=== PATIENT | male | born 1960 | race Caucasian/White ===

== ENCOUNTER 2018-03-19 12:33 | Emergency (ER) | payer OTHER ==
[2018-03-19 12:46] VITALS: BP 182/105
--- NOTE | 2018-03-19 14:27 | UC ---
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 WAS UNABLE TO GET INTO HIS PCP TODAY SO HE CAME HERE. HE DENIES CHEST PAIN, SHORTNESS OF BREATH, NAUSEA, VISUAL DISTURBANCE, HEADACHE, SWEATS. FEELS WELL OVERALL. DENIES ANY PREVIOUS HISTORY OF HYPERTENSION AND IS NOT ON ANY MEDICATION. LAST PHYSICAL WITH HIS PCP DR. WARNER WAS 2 YEARS AGO. - History of Current Complaint Chief Complaint: UCGeneralIllness Stated Complaint: HIGH BLOOD PRESSURE Time Seen by Provider: 03/19/18 13:50 Hx Obtained From: Patient Aggravating Factor(s): Nothing Alleviating Factor(s): Nothing Associated Signs And Symptoms: Negative: Chest Pain, Vision Changes, Headaches, Numbness, Weakness, Dizziness, SOB, Swelling - Allergies/Home Medications Allergies/Adverse Reactions: Allergies Allergy/AdvReac Type Severity Reaction Status Date / Time No Known Allergies Allergy Verified 03/19/18 12:39 PMH/Surg Hx/FS Hx/Imm Hx Previously Healthy: Yes - Surgical History Surgery Procedure, Year, and Place: Rt knee arthroscopy - Family History Known Family History: Positive: Hypertension - Social History Alcohol Use: Daily Alcohol Amount: few beers/ night Substance Use Type: None Smoking Status (MU): Never Smoked Tobacco Review of Systems Constitutional: Negative Skin: Negative Respiratory: Negative Cardiovascular: Negative Gastrointestinal: Negative Musculoskeletal: Negative Neurological: Negative All Other Systems Reviewed And Are Negative: Yes Physical Exam Triage Information Reviewed: Yes Appearance: Well-Appearing, No Pain Distress, Well-Nourished Vital Signs: Initial Vital Signs Temp 99.4 F 03/19/18 12:39 Pulse 120 03/19/18 12:39 Resp 18 03/19/18 12:39 BP 182/105 03/19/18 12:39 Pulse Ox 97 03/19/18 12:39 Vital Signs Reviewed: Yes Eyes: Positive: Conjunctiva Clear ENT: Positive: Hearing grossly normal Neck: Positive: Supple, Nontender, No Lymphadenopathy Respiratory Exam: Normal Cardiovascular: Positive: Tachycardia Abdomen Description: Positive: Soft Musculoskeletal: Positive: ROM Intact, No Edema Neurological: Positive: Alert Psychological: Positive: Age Appropriate Behavior Skin: Negative: rashes Hypertension Course/Dx - Course Course Of Treatment: PATIENT DECLINED EKG STATING HE PREFERRED TO SEE DR. BREIMAN FIRST. PATIENT ALSO DECLINED TRANSFER TO THE ED TODAY. ADVISED THAT HE COULD BE RISKING WORSENING OF HIS CONDITION THAT COULD POSE A THREAT TO HIS LIFE , HEALTH AND MEDICAL SAFETY. HE VERBALIZES UNDERSTANDING AND CONTINUES TO DECLINE TRANSFER. STATES HE WILL GO TO ED IF HIS SX CHANGE OR WORSEN. WILL START ON LISINOPRIL AND HAVE ADVISED PT TO GET A BP METER AND CHECK BP DAILY. F/ U PCP THIS WEEK. - Differential Dx/Diagnosis Provider Diagnoses: HYPERTENSIVE CRISIS Discharge - Sign-Out/Discharge Documenting (check all that apply): Patient Departure All imaging exams completed and their final reports reviewed: No Studies - Discharge Plan Condition: Stable Disposition: HOME Prescriptions: Lisinopril 20 mg PO DAILY #30 tablet Patient Education Materials: Hypertensive Crisis (ED) Referrals: Harley Warner MD [Primary Care Provider] - 3 Days Additional Instructions: YOUR BLOOD PRESSURE TODAY WAS ELEVATED TO 182/105. THIS IS DANGEROUSLY HIGH AND IS CONCERNING FOR STROKE, HEART DISEASE OR END ORGAN DAMAGE. YOU HAVE DECLINED TRANSFER TO THE ED TODAY WITH THE UNDERSTANDING THAT YOUR CONDITION MAY WORSEN LEADING TO A POOR OUTCOME INCLUDING STROKE, CARDIAC ARREST, /DISABILITY. START THE BLOOD PRESSURE MEDICATION AND GET A BLOOD PRESSURE METER. CHECK YOUR PRESSURE DAILY AND KEEP A RECORD. FOLLOW-UP WITH YOUR PCP THIS WEEK. GO TO ED WITHOUT FAIL IF YOU DEVELOP SHORTNESS OF BREATH, CHEST PAIN, NAUSEA, SWEATS, DIZZINESS, VISUAL DISTURBANCES OR ANY OTHER CONCERNING SYMPTOMS. - Billing Disposition and Condition Condition: STABLE Disposition: Home
== END 2018-03-19 14:25 | disposition home or self-care (01) ==
LOC: UCEAST 12:33
DX: I16.9 Hypertensive crisis, unspecified (principal); Z82.49 Family history of ischemic heart disease and other diseases of the circulatory system
CPT/HCPCS: 99212; G0463

== ENCOUNTER 2018-05-17 09:27 | Emergency (ER) | payer OTHER ==
[2018-05-17] MEDS ORDERED: NS 0.9% 1000 ML* 1,000 ML IV ONE (09:59)
--- NOTE | 2018-05-17 10:20 | ED ---
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 Patient was then sent to ED. Patient denies chest pain, SOB, palpitations, and cardiac history, noting he has never received an EKG prior to this date and states that one was not done upstairs. 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 On triage, pain is denied, nothing is noted to aggravate/alleviate Sx. Home medications and allergies are reviewed. - History of Current Complaint Chief Complaint: EDDysrhythmPalp Stated Complaint: CHEST DISCOMFORT Time Seen by Provider: 05/17/18 09:53 Hx Obtained From: Patient Onset/Duration: Started Minutes Ago, Resolved - patient reports no palpitations , pulse is 98 Timing: Constant Current Severity: None Pain Intensity: 0 Pain Scale Used: 0-10 Numeric - 0/10 Aggravating Factor(s): Nothing Alleviating Factor(s): Nothing Associated Signs and Symptoms: Negative: Chest Pain, Shortness of Breath, Palpitations - Allergy/Home Medications Allergies/Adverse Reactions: Allergies Allergy/AdvReac Type Severity Reaction Status Date / Time No Known Allergies Allergy Verified 05/17/18 09:37 PMH/Surg Hx/FS Hx/Imm Hx Sensory History: Denies: Hx Legally Blind, Hx Deafness Opthamlomology History: Denies: Hx Legally Blind EENT History: Denies: Hx Deafness - Surgical History Surgery Procedure, Year, and Place: Rt knee arthroscopy Infectious Disease History: No Infectious Disease History: Denies: Traveled Outside the [place] in Last 30 Days - Family History Known Family History: Positive: Hypertension - Social History Alcohol Use: Daily Alcohol Amount: few beers/ night Substance Use Type: Reports: None Smoking Status (MU): Never Smoked Tobacco Review of Systems Negative: Palpitations, Chest Pain Negative: Shortness Of Breath All Other Systems Reviewed And Are Negative: Yes Physical Exam - Summary Physical Exam Summary: GENERAL: Patient is a well-developed and nourished male who is lying comfortable in the stretcher. Patient is not in any acute respiratory distress. HEAD AND FACE: Normocephalic EYES: PERRLA, EOMI x 2. EARS: Hearing grossly intact. MOUTH: Oropharynx within normal limits. NECK: Supple, trachea is midline, no adenopathy, no JVD, no carotid bruit. CHEST: Symmetric, no tenderness at palpation LUNGS: Clear to auscultation bilaterally. No wheezing or crackles. CVS: regular rate and rhythm, S1 and S2 present, no murmurs or gallops appreciated. ABDOMEN: Soft, non-tender. Bowel sounds are normal. No abdominal abnormal pulsations. EXTREMITIES: Full ROM in all major joints, no edema, no cyanosis or clubbing. NEURO: Alert and oriented x 3. No acute neurological deficits. Speech is normal and follows commands. SKIN: Dry and warm Triage Information Reviewed: Yes Vital Signs On Initial Exam: Initial Vitals Temp Pulse Resp BP Pulse Ox 98.4 F 98 18 135/78 98 05/17/18 09:33 05/17/18 09:33 05/17/18 09:33 05/17/18 09:33 05/17/18 09:33 Vital Signs Reviewed: Yes Diagnostics - Vital Signs Vital Signs Temp Pulse Resp BP Pulse Ox 05/17/18 09:33 98.4 F 98 18 135/78 98 - Laboratory Result Diagrams: 05/17/18 10:18 05/17/18 10:18 Lab Statement: Any lab studies that have been ordered have been reviewed, and results considered in the medical decision making process. - Radiology CXR Radiology Interpretation Completed By: Radiologist Summary of Radiographic Findings: IMPRESSION: NO ACTIVE CARDIOPULMONARY DISEASE. THIS REPORT WAS REVIEWED BY ED PHYSICIAN. - CT CTA Chest/Thorax CT Interpretation Completed By: Radiologist Summary of CT Findings: IMPRESSION: 1. NO PULMONARY ARTERIAL FILLING DEFECT TO SUGGEST PULMONARY EMBOLISM. 2. 0.4 CM NODULE OF THE LEFT LOWER LOBE. THE RECOMMENDATIONS FOR FOLLOWUP AND MANAGEMENT. OF AN INCIDENTALLY DETECTED PULMONARY NODULE LESS THAN 6 MM IN SIZE, IN A PATIENT WITHOUT. A HISTORY OF MALIGNANCY, INCLUDE NO FOLLOWUP FOR A LOW-RISK PATIENT OR OPTIONAL FOLLOWUP. CT IN 12 MONTHS FOR A HIGH RISK PATIENT. NOTES: SIZE = AVERAGE LENGTH AND WIDTH ; HIGH RISK IS DEFINED A HISTORY OF SMOKING OR. OTHER KNOW RISK FACTORS FOR LUNG CANCER; LOW RISK IS DEFINED MINIMAL OR ABSENT HISTORY. OF SMOKING OR OTHER KNOWN RISK FACTORS. THIS REPORT WAS REVIEWED BY ED PHYSICIAN. - Ultrasound No standard instances Ultrasound Interpretation Completed By: Radiologist Summary of Ultrasound Findings: DOPPLER VENOUS STUDY IMPRESSION: #. Negative for RIGHT or LEFT lower extremity DVT. THIS REPORT WAS REVIEWED BY ED PHYSICIAN. - EKG 0945 Cardiac Rate: NL - rate of 87 BPM EKG Rhythm: Sinus Rhythm Summary of EKG Findings: normal axis Re-Evaluation - Re-Evaluation First Eval Re-Evaluation Time: 11:00 Comment: As d-dimer was 789, discussed CTA chest and Venous Doppler Study with patient, who is agreeable. Second Eval Re-Evaluation Time: 13:25 Change: Improved Comment: Results of further imaging was discussed, patient reports feeling better. Patient will be discharged to home and follow up with PCP and chrome tanning drum operator. 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 Patient was then sent to ED. Patient denies chest pain, SOB, palpitations, and cardiac history, noting he has never received an EKG prior to this date and states that one was not done upstairs. 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 Physical exam was unremarkable. EKG showed normal sinus rhythm, 87 BPM, normal axis. CXR IMPRESSION: NO ACTIVE CARDIOPULMONARY DISEASE. During ED course, patient received fluids. Labs showed RBC 3.52, Hgb 12.4, Hct 35, glucose 95, lactic acid 1.2, magnesium 1.9, AST 42, BUN 29. BNP was 12, TSH 1.76, T4 6.7. Both trops were negative. D-dimer was 789, CTA chest and Venous Doppler study of both legs were ordered. DOPPLER VENOUS STUDY IMPRESSION: #. Negative for RIGHT or LEFT lower extremity DVT. THIS REPORT WAS REVIEWED BY ED PHYSICIAN. CTA CHEST/THORAX IMPRESSION: 1. NO PULMONARY ARTERIAL FILLING DEFECT TO SUGGEST PULMONARY EMBOLISM. 2. 0.4 CM NODULE OF THE LEFT LOWER LOBE. THE RECOMMENDATIONS FOR FOLLOWUP AND MANAGEMENT. OF AN INCIDENTALLY DETECTED PULMONARY NODULE LESS THAN 6 MM IN SIZE, IN A PATIENT WITHOUT. A HISTORY OF MALIGNANCY, INCLUDE NO FOLLOWUP FOR A LOW-RISK PATIENT OR OPTIONAL FOLLOWUP. CT IN 12 MONTHS FOR A HIGH RISK PATIENT. NOTES: SIZE = AVERAGE LENGTH AND WIDTH ; HIGH RISK IS DEFINED A HISTORY OF SMOKING OR. OTHER KNOW RISK FACTORS FOR LUNG CANCER; LOW RISK IS DEFINED MINIMAL OR ABSENT HISTORY. OF SMOKING OR OTHER KNOWN RISK FACTORS. Results were discussed with patient, who reports feeling better. Patient is hemodynamically stable and safe for discharge. Strict return precautions given and patient will otherwise follow up with PCP and chrome tanning drum operator. Patient is agreeable with this plan. Dx of palpitations. No evidence of tachycardia observed here in the ED. - Diagnoses Provider Diagnoses: Heart palpitations Discharge - Sign-Out/Discharge Documenting (check all that apply): Patient Departure - discharge - Discharge Plan Condition: Stable Disposition: HOME Patient Education Materials: Heart Palpitations (ED), Pulmonary Nodules (ED) Referrals: Harley Warner MD [Primary Care Provider] - 3 Days [facility] [Provider Group] - 3 Days Additional Instructions: Follow up with your primary care physician and chrome tanning drum operator in 1-3 days. It is noted on your CTA that you have pulmonary nodules, be sure to follow up with regards to this in six months. RETURN TO THE EMERGENCY DEPARTMENT FOR CHANGING OR WORSENING SYMPTOMS. - Billing Disposition and Condition Condition: STABLE Disposition: Home - Attestation Statements Document Initiated by Lisaibe: Yes Documenting Scribe: Carrington Hightower Provider For Whom Jeannette is Documenting (Include Credential): Carlos Ambrose MD Scribe Attestation: Carrington Shell scribed for Carlos Ambrose MD on 05/17/18 at 1414. Scribe Documentation Reviewed: Yes Provider Attestation: The documentation as recorded by the Carrington prince accurately reflects the service I personally performed and the decisions made by me, Carlos Ambrose MD
[2018-05-17 10:28] LABS: ABS Basophils 0 10^3/ul (0-0.2); ABS Eosinophils 0.1 10^3/ul (0-0.6); ABS Lymphocytes 0.7 10^3/ul (1.0-4.8); ABS Monocytes 0.7 10^3/ul (0-0.8); ABS Nucleated RBC 0 10^3/ul; Eosinophil % 1.4 % (0-6); Hematocrit 35 % (42-52); Hemoglobin 12.4 g/dl (14.0-18.0); Mean Corpuscular HGB Conc 35 g/dl (31-36); Mean Corpuscular Hemoglobin 35 pg (27-31); Mean Corpuscular Volume 99 fL (80-94); Mean Platelet Volume 7.2 fL (7.4-10.4); Nucleated Red Blood Cells % 0; Platelet Count 178 10^3/ul (150-450); Red Blood Count 3.52 10^6/ul (4.00-5.40); Red Cell Distribution Width 11 % (10.5-15); White Blood Count 6.5 10^3/ul (3.5-10.8)
[2018-05-17 10:42] LABS: EGFR Non-African American 69.2 (>60)
[2018-05-17 10:43] LABS: INR 0.94 (0.77-1.02)
[2018-05-17] MEDS ORDERED: Iohexol 350* (CONTRAST) 500 ML MDV IV ONE (11:09)
[2018-05-17 14:16] VITALS: BP 166/92
== END 2018-05-17 14:14 | disposition home or self-care (01) ==
LOC: ED 09:27
DX: R00.2 Palpitations (principal); R07.9 Chest pain, unspecified
CPT/HCPCS: 36415; 71045; 71275; 80053; 83605; 83735; 83880; 84436; 84443; 84484; 85025; 85379; 85610; 85730; 93005; 93970; 96361; 96374; 99282; Q9967

== ENCOUNTER 2021-02-23 11:38 | Inpatient (IN) ==
[~2021-02-23 11:38] MED LIST: Buffered Lidocaine 1% SYRIN 1 ml INTRADERM ONE; Ertapenem 1 GM in NS 0.9% 50 ML BAG IVPB SCH; Lactated Ringers 1000 ml BAG 1,000 ML IV SCH
[2021-02-23] MEDS ORDERED: Heparin 5000 UNITS/ML 1 mL VIAL ONE (13:15)
[2021-02-23] MEDS ORDERED: Rocuronium 50 mg VIAL 10 mg/ml 5 ml VIAL (50 mg) ONE ×2 (13:24→13:26)
[2021-02-23] MEDS ORDERED: Lidocaine 2% PF 5 ML VIAL ONE (13:24)
[2021-02-23] MEDS ORDERED: Propofol 10 MG/ML 20 ML BTL ONE ×2 (13:24→13:36)
[2021-02-23] MEDS ORDERED: Dexamethasone IV 4 MG/ML VIAL 1 ml VIAL ONE ×2 (13:24→13:38)
[2021-02-23] MEDS ORDERED: Ondansetron 4 mg VIAL 2 MG/ML 2 ml VIAL ONE (13:24)
[2021-02-23] MEDS ORDERED: Bupivacaine 0.25% SDV 30 ML ONE (13:24)
[2021-02-23] MEDS ORDERED: Midazolam 2 mg/2 ml VIAL 1 mg/ml 2 ml VIAL (2 mg) ONE (13:25)
[2021-02-23] MEDS ORDERED: fentaNYL 250 mcg/5 ml 50 MCG/ML 5 ml VIAL (250 MCG) ONE (13:25)
[2021-02-23] MEDS ORDERED: Desflurane 240 ML INH ONE (13:39)
[2021-02-23] MEDS ORDERED: Ondansetron 4 mg VIAL 2 MG/ML 2 ml VIAL IV PRN ×2 (14:44→20:04)
[2021-02-23] MEDS ORDERED: fentaNYL 100 mcg/2 ml 50 MCG/ML VIAL IV PRN (14:44)
[2021-02-23] MEDS ORDERED: Naloxone 0.4 mg VIAL 0.4 mg/ml 1 ml VIAL IV PRN (14:44)
[2021-02-23] MEDS ORDERED: DiMENhydriNATE IV 50 mg/ml 1 ml VIAL IV PUSH PRN (14:44)
[2021-02-23] MEDS ORDERED: Acetaminophen IV 1 GM/100ML 100 ML IV PRN (14:44)
[2021-02-23] MEDS ORDERED: Phenylephrine 40 mcg/mL 10mL (400mcg) SYRINGE ONE (15:06)
[2021-02-23] MEDS ORDERED: Phenylephrine IV 10 MG/ML 1 ml VIAL ONE ×2 (15:06→15:10)
[2021-02-23] MEDS ORDERED: Glycopyrrolate IV 0.2 MG/ML 1 ML VIAL ONE (15:15)
[2021-02-23] MEDS ORDERED: Morphine 10 MG/ML VIAL (1 ml) ONE (16:02)
[2021-02-23] MEDS ORDERED: HYDROmorphone 1 MG/1 ML SYRINGE IV SLOW PU PRN (20:04)
[2021-02-23] MEDS ORDERED: Acetaminophen IV 1 GM/100ML 100 ML IV ONE (20:34)
[2021-02-23] MEDS ORDERED: HYDROmorphone 1 MG/1 ML SYRINGE ONE (20:34)
[2021-02-23] MEDS: HYDROmorphone 1 MG/1 ML SYRINGE IV PRN ×2 (20:35→20:44)
[2021-02-23] MEDS ORDERED: Lactated Ringers 1000 ml BAG 1,000 ML IV SCH (21:00)
[2021-02-24 06:09] LABS: ABS Lymphocytes 0.7 10^3/ul (1.0-4.8); ABS Monocytes 1.1 10^3/ul (0-0.8); ABS Neutrophils 11.2 10^3/ul (1.5-7.7); Hematocrit 37 % (42-52); Lymphocyte % 5.6 %; Mean Corpuscular HGB Conc 35 g/dL (31-36); Mean Corpuscular Hemoglobin 34 pg (27-31); Mean Corpuscular Volume 99 fL (80-94); Platelet Count 190 10^3/uL (150-450); Red Blood Count 3.77 10^6 /uL (4.18-5.48); Red Cell Distribution Width 12 % (10-15)
[2021-02-24 06:30] LABS: Calcium 8.3 mg/dL (8.6-10.3); EGFR Non-African American 97.5 (>60); Potassium 4.2 mmol/L (3.5-5.0)
[2021-02-24] MEDS: Enoxaparin 30 MG/0.3 ML SYR SUBCUT SCH (08:51)
[2021-02-24] MEDS ORDERED: Calamine/Pramoxine LOTION 8%/1% 180 ML TOPICAL PRN (17:30)
[2021-02-24] MEDS ORDERED: CALAMINE TOPICAL PRN (17:50)
[2021-02-24] MEDS ORDERED: PRAMOXINE TOPICAL PRN (17:50)
[2021-02-25 06:58] LABS: ABS Eosinophils 0.1 10^3/ul (0-0.6); ABS Lymphocytes 0.7 10^3/ul (1.0-4.8); ABS Monocytes 0.6 10^3/ul (0-0.8); ABS Neutrophils 6.2 10^3/ul (1.5-7.7); Eosinophil % 0.9 %; Hematocrit 38 % (42-52); Hemoglobin 13.9 g/dL (14.0-18.0); Lymphocyte % 9.8 %; Mean Corpuscular HGB Conc 36 g/dL (31-36); Mean Corpuscular Hemoglobin 35 pg (27-31); Mean Corpuscular Volume 98 fL (80-94); Mean Platelet Volume 9.3 fL (7.4-10.4); Platelet Count 180 10^3/uL (150-450); Red Blood Count 3.94 10^6 /uL (4.18-5.48); Red Cell Distribution Width 12 % (10-15); White Blood Count 7.6 10^3/uL (3.5-10.8)
[2021-02-25 07:08] LABS: Calcium 8.8 mg/dL (8.6-10.3); EGFR African American 123.3 (>60); EGFR Non-African American 101.9 (>60); Potassium 3.8 mmol/L (3.5-5.0)
[2021-02-25] MEDS: Enoxaparin 30 MG/0.3 ML SYR SUBCUT SCH (07:47)
[2021-02-25 11:09] VITALS: BP 132/69
== END 2021-02-25 13:50 | disposition home or self-care (01) | DRG 334 ==
LOC: AA 11:38 → SSU 22:39
PROVIDERS: ADMIT Surgery; ATTEND Surgery

== ENCOUNTER 2021-08-01 05:42 | Inpatient (IN) ==
[2021-08-01] MEDS ORDERED: Lactated Ringers 1000 ml BAG 1,000 ML IV SCH (06:00)
[2021-08-01] MEDS ORDERED: Famotidine IV 10 MG/ML 2 ml VIAL (20 mg) IV ONE (06:00)
[2021-08-01] MEDS ORDERED: Buffered Lidocaine 1% SYRIN 1 ml INTRADERM ONE (06:00)
[2021-08-01] MEDS ORDERED: Heparin 5000 UNITS/ML 1 mL VIAL ONE (06:04)
[2021-08-01] MEDS ORDERED: Famotidine IV 10 MG/ML 2 ml VIAL (20 mg) ONE (06:05)
[2021-08-01 06:33] LABS: Hematocrit 42 % (42-52); Hemoglobin 15.1 g/dL (14.0-18.0); Mean Corpuscular HGB Conc 36 g/dL (31-36); Mean Corpuscular Hemoglobin 35 pg (27-31); Mean Corpuscular Volume 97 fL (80-94); Mean Platelet Volume 8.1 fL (7.4-10.4); Platelet Count 242 10^3/uL (150-450); Red Blood Count 4.34 10^6 /uL (4.18-5.48); Red Cell Distribution Width 12 % (10-15); White Blood Count 5.3 10^3/uL (3.5-10.8)
[2021-08-01] MEDS ORDERED: Bupivacaine 0.25% SDV 30 ML ONE (06:40)
[2021-08-01 06:48] LABS: Calcium 9.6 mg/dL (8.6-10.3); Potassium 3.7 mmol/L (3.5-5.0); eGFR CKD-EPI 84.7 (>60)
[2021-08-01] MEDS ORDERED: Ertapenem 1 GM in NS 0.9% 50 ML IVPB ONE (07:00)
[2021-08-01] MEDS ORDERED: Dexamethasone IV 4 MG/ML VIAL 1 ml VIAL ONE (07:19)
[2021-08-01] MEDS ORDERED: fentaNYL 100 mcg/2 ml 50 MCG/ML VIAL ONE ×2 (07:19→09:13)
[2021-08-01] MEDS ORDERED: Propofol 10 MG/ML 20 ML BTL ONE (07:19)
[2021-08-01] MEDS ORDERED: Rocuronium 50 mg VIAL 10 mg/ml 5 ml VIAL (50 mg) ONE ×2 (07:19→09:12)
[2021-08-01] MEDS ORDERED: Midazolam 2 mg/2 ml VIAL 1 mg/ml 2 ml VIAL (2 mg) ONE (07:19)
[2021-08-01] MEDS ORDERED: Lidocaine 2% PF 5 ML VIAL ONE (07:19)
[2021-08-01] MEDS ORDERED: Ondansetron 4 mg VIAL 2 MG/ML 2 ml VIAL ONE (07:19)
[2021-08-01] MEDS ORDERED: HYDROmorphone 1 MG/1 ML SYRINGE IV PRN (08:16)
[2021-08-01] MEDS ORDERED: Naloxone 0.4 mg VIAL 0.4 mg/ml 1 ml VIAL IV PRN (08:16)
[2021-08-01] MEDS ORDERED: fentaNYL 100 mcg/2 ml 50 MCG/ML VIAL IV PRN (08:16)
[2021-08-01] MEDS ORDERED: Ondansetron 4 mg VIAL 2 MG/ML 2 ml VIAL IV PRN ×2 (08:16→10:24)
[2021-08-01] MEDS ORDERED: HYDROmorphone 0.5 MG/0.5 ML SYRINGE ONE (09:49)
[2021-08-01] MEDS ORDERED: HYDROmorphone 1 MG/1 ML SYRINGE IV SLOW PU PRN (10:24)
[2021-08-02 07:01] LABS: ABS Eosinophils 0.1 10^3/ul (0-0.6); ABS Lymphocytes 1.3 10^3/ul (1.0-4.8); ABS Neutrophils 6.8 10^3/ul (1.5-7.7); Eosinophil % 1.1 %; Hematocrit 37 % (42-52); Hemoglobin 13.1 g/dL (14.0-18.0); Mean Corpuscular HGB Conc 35 g/dL (31-36); Mean Corpuscular Hemoglobin 35 pg (27-31); Mean Corpuscular Volume 98 fL (80-94); Mean Platelet Volume 8.2 fL (7.4-10.4); Platelet Count 203 10^3/uL (150-450); Red Blood Count 3.78 10^6 /uL (4.18-5.48); Red Cell Distribution Width 12 % (10-15); White Blood Count 9.2 10^3/uL (3.5-10.8)
[2021-08-02 07:17] LABS: Calcium 9.1 mg/dL (8.6-10.3); Potassium 3.8 mmol/L (3.5-5.0); eGFR CKD-EPI 83.7 (>60)
[2021-08-02] MEDS: Enoxaparin 30 MG/0.3 ML SYR SUBCUT SCH (09:11)
[2021-08-03 06:46] LABS: ABS Basophils 0.1 10^3/ul (0-0.2); ABS Eosinophils 0.4 10^3/ul (0-0.6); ABS Lymphocytes 1.3 10^3/ul (1.0-4.8); ABS Monocytes 0.8 10^3/ul (0-0.8); ABS Neutrophils 5.5 10^3/ul (1.5-7.7); Eosinophil % 4.4 %; Hematocrit 38 % (42-52); Hemoglobin 13.6 g/dL (14.0-18.0); Lymphocyte % 16.2 %; Mean Corpuscular HGB Conc 36 g/dL (31-36); Mean Corpuscular Hemoglobin 35 pg (27-31); Mean Corpuscular Volume 99 fL (80-94); Mean Platelet Volume 8.5 fL (7.4-10.4); Platelet Count 227 10^3/uL (150-450); Red Blood Count 3.88 10^6 /uL (4.18-5.48); Red Cell Distribution Width 12 % (10-15)
[2021-08-03 07:01] LABS: Calcium 9.4 mg/dL (8.6-10.3); Potassium 4.2 mmol/L (3.5-5.0); eGFR CKD-EPI 91.1 (>60)
[2021-08-03] MEDS: Enoxaparin 30 MG/0.3 ML SYR SUBCUT SCH (07:27)
[2021-08-03 08:05] VITALS: BP 109/69
[2021-08-04] MEDS ORDERED: Scopolamine PATCH Remove NOTE PATCH OFF ONE (06:00)
== END 2021-08-03 08:40 | disposition home or self-care (01) | DRG 331 ==
LOC: AA 05:42 → SSU 11:41
PROVIDERS: ADMIT Surgery; ATTEND Surgery